=== PATIENT | male | born 1955 | race African-American/Black ===

== ENCOUNTER 2016-05-04 11:55 | Emergency (ER) | payer OTHER ==
[~2016-05-04] VITALS: Ht 185.4 cm; Wt 85.3 kg
[~2016-05-04 11:55] MED LIST: EFAV1TAB PO; FLUO-119 PO
[2016-05-04 12:01] VITALS: BP 146/95
== END 2016-05-04 13:28 | disposition home or self-care (01) ==
LOC: ER 12:02
DX: R60.0 Localized edema (principal); F17.200 Nicotine dependence, unspecified, uncomplicated; Z90.5 Acquired absence of kidney; Z59.0 Homelessness
CPT/HCPCS: 93970; 99284; A4606; Z7610